=== PATIENT | female | born 1985 | race Two or more races ===

== ENCOUNTER 2018-11-19 13:43 | Emergency (ER) | payer MEDICAID ==
[~2018-11-19] VITALS: Ht 165.1 cm; Wt 59.0 kg
[2018-11-19 14:42] LABS: *BILIRUBIN,URIN NEGATIVE (NEGATIVE); *BLOOD, URINE NEGATIVE (NEGATIVE); *CLARITY,URINE CLEAR (CLEAR); *COLOR,URINE LIGHT YELLOW (YELLOW); *KETONES,URINE NEGATIVE (NEGATIVE); *UROBILINOGEN,URINE 0.2 E.U./dl (NORMAL); LEUKOCYTE ESTERASE ,URINE NEGATIVE (NEGATIVE); NITRITE, URINE NEGATIVE (NEGATIVE); PH,URINE 6.5 (5.0-8.0); UGLUCOSE NEGATIVE (NEGATIVE)
[2018-11-19 14:44] LABS: *URINE HCG, QUAL NEGATIVE (NEGATIVE)
[2018-11-19] MEDS ORDERED: OXYCODONE/APAP 5-325 MG TABLET PO ONE (14:45)
[2018-11-19 14:50] LABS: BACTERIA,URINE MODERATE /HPF (NONE SEEN); SQUAMOUS EPITHELIAL CELL,UR FEW /HPF (NONE SEEN)
[2018-11-19] MEDS ORDERED: OXYCODONE/APAP 5-325 MG TABLET ONE (14:53)
[2018-11-19] MEDS ORDERED: IBUPROFEN 800 MG TABLET ONE (15:28)
[2018-11-19] MEDS ORDERED: IBUPROFEN 800 MG TABLET PO ONE (15:30)
--- NOTE | 2018-11-19 16:43 | NUR ---
Patient discharged to home in stable conditon. Written and verbal after care instructions given. Patient verbalizes understanding of instructions.
--- NOTE | 2018-11-19 16:44 | NUR ---
Pt left ER w/ steady gait accompained by .
[2018-11-19 16:45] VITALS: BP 102/66
== END 2018-11-19 16:47 | disposition home or self-care (01) ==
LOC: ER 13:43
DX: R10.9 Unspecified abdominal pain (principal)
CPT/HCPCS: 84703; A4663